=== PATIENT | female | born 1960 | race Caucasian/White ===

== ENCOUNTER 2016-05-06 16:51 | Outpatient (CLI) | payer BC ==
[2016-05-06 20:26] LABS: ALT (SGPT) 44 U/L (0-55); AST (SGOT) 25 U/L (5-34); Alkaline Phosphatase 62 U/L (40-150); Anion Gap 18 mmol/L (10-20); BUN (Urea Nitrogen) 27 mg/dL (9.8-20.1); Bilirubin, Total 0.6 mg/dL (0.2-1.2); Calc. Creatinine Clearance 0 mL/min (70-130); Calcium 9.8 mg/dL (7.8-10.44); Carbon Dioxide 25 mmol/L (22-29); Chloride 102 mmol/L (98-107); Estimated GFR-MDRD 48; Globulin 2.6 g/dL (2.4-3.5); LDL Cholesterol, Calculated 87 mg/dL; Protein, Total 7.2 g/dL (6.0-8.3)
[2016-05-06 20:58] LABS: Hemoglobin A1c 6.3 % (4.0-6.0)
== END 2016-05-06 16:52 | disposition home or self-care (01) ==
LOC: NAV SJFMSP 16:51
PROVIDERS: ATTEND Family Medicine
DX: E78.5 Hyperlipidemia, unspecified (principal); E11.9 Type 2 diabetes mellitus without complications
CPT/HCPCS: 80053; 80061; 83036